=== PATIENT | female | born 1965 | race Caucasian/White ===

== ENCOUNTER → 2016-11-13 | Outpatient (CLI) | payer BC ==
[~2016-11-13] MED LIST: ASPEC325 PO; CLOB-65 EXT; HYDR25TA4 PO; LEVO75TA36 PO; POTA20TA16 PO; [UNRECOGNIZED DRUG - REMARK] TOP
[2016-11-13 09:39] LABS: BASO % 0.8 %; BASO ABS # 0.03 K/uL (0-0.2); COMPLETE YES; EOS % 3.3 %; HEMATOCRIT 37.9 % (37-47); LYMPH % 44.3 %; MEAN CELL VOLUME 96.2 fL (80-100); MEAN CORPUSCULAR HGB CONC 33.2 g/dl (32-36); MEAN PLATELET VOLUME 11.7 fL (7.4-10.4); MONO % 14.4 %; NEUT % 37.2 %; PLATELET COUNT 237 K/uL (130-400); RED BLOOD COUNT 3.94 M/uL (4.2-5.4); WHITE BLOOD COUNT 3.61 K/uL (4.8-10.8)
[2016-11-13 09:53] LABS: BLOOD UREA NITROGEN 13 mg/dl (7-18); BUN/CREATININE RATIO 14.5 (10-20); CARBON DIOXIDE 26 mmol/L (21-32); CHLORIDE 107 mmol/L (98-107); CHOLESTEROL 170 mg/dl (0-200); CREATININE 0.86 mg/dl (0.60-1.20); GLUCOSE 81 mg/dl (70-99); POTASSIUM 4.2 mmol/L (3.5-5.1); SODIUM 140 mmol/L (136-145); TRIGLYCERIDES 69 mg/dl (0-150); VERY LOW DENSITY LIPOPROT CALC 14 mg/dl
[2016-11-13 10:03] LABS: CHOLESTEROL/HDL RATIO 2.7; HDL CHOLESTEROL 64 mg/dl; LDL CHOLESTEROL CALCULATED 92 mg/dl
== END | disposition home or self-care (01) ==
LOC: C.LAB 07:54
DX: I10 Essential (primary) hypertension (principal); E03.9 Hypothyroidism, unspecified; D64.9 Anemia, unspecified; M79.669 Pain in unspecified lower leg; Z13.89 Encounter for screening for other disorder

== ENCOUNTER → 2017-05-16 | Outpatient (CLI) | payer BC ==
[2017-05-16 10:07] LABS: BASO % 0.7 %; BASO ABS # 0.03 K/uL (0-0.2); COMPLETE YES; EOS % 3.6 %; HEMATOCRIT 36.8 % (37-47); IG% 0.2 %; LYMPH % 31.7 %; LYMPH ABS # 1.32 K/uL (1.2-3.4); MEAN CELL VOLUME 99.7 fL (80-100); MEAN CORPUSCULAR HEMOGLOBIN 32.5 pg (25-34); MEAN CORPUSCULAR HGB CONC 32.6 g/dl (32-36); MEAN PLATELET VOLUME 11.7 fL (7.4-10.4); MONO % 10.8 %; PLATELET COUNT 224 K/uL (130-400); RED BLOOD COUNT 3.69 M/uL (4.2-5.4); WHITE BLOOD COUNT 4.16 K/uL (4.8-10.8)
[2017-05-16 10:16] LABS: BLOOD UREA NITROGEN 14 mg/dl (7-18); BUN/CREATININE RATIO 17.4 (10-20); CALCIUM 8.6 mg/dl (8.5-10.1); CARBON DIOXIDE 27 mmol/L (21-32); CHLORIDE 105 mmol/L (98-107); GLUCOSE 82 mg/dl (70-99); POTASSIUM 3.6 mmol/L (3.5-5.1); SODIUM 137 mmol/L (136-145)
== END | disposition home or self-care (01) ==
LOC: C.LAB 07:44
DX: I10 Essential (primary) hypertension (principal); E03.9 Hypothyroidism, unspecified

== ENCOUNTER → 2017-07-10 | Outpatient (CLI) | payer OTHER ==
--- NOTE | 2017-07-10 13:27 | DIAGNOSTIC IMAGING REPORT ---
ULTRASOUND OF THE THYROID GLAND CLINICAL HISTORY: Multinodular goiter. COMPARISON STUDY: Thyroid ultrasound dated 09/16/2013. TECHNIQUE: Real-time, grayscale, and color flow sonography of the thyroid gland is performed utilizing a high-frequency linear transducer. Images are reviewed in the transverse and longitudinal planes. FINDINGS: Right lobe: The right lobe of the thyroid gland is mildly enlarged and heterogeneous in echotexture, measuring 5.7 x 2.6 x 2.8 cm. A lobulated solid and cystic nodule in the mid to lower pole measures 3.3 x 2.2 x 2.3 cm (this is not significantly changed but was previously measured as 2 discrete nodules). Internal flow is seen on color imaging. A cystic nodule with minimal complexity in the upper pole measures 1.2 x 0.7 x 1.0 cm. This nodule is increasingly cystic from 2014. Left lobe: The left lobe of the thyroid gland is normal in size and heterogeneous in echotexture, measuring 4.7 x 1.7 x 1.7 cm. A solid and cystic nodule in the mid to lower pole measures 3.0 x 1.6 x 1.4 cm (not significantly changed but previously measured as 3 discrete nodules). Internal flow is seen on color imaging. A coarse calcification is noted in the lower pole. Isthmus: The thyroid isthmus is normal in appearance and measures 0.2 cm in AP diameter. IMPRESSION: Multinodular thyroid gland, not significantly changed in appearance from previous. See above. Electronically signed by: Pedro Kelly M.D. 07/10/2017 1:25 PM Dictated Date/Time: 07/10/2017 1:21 PM
== END | disposition home or self-care (01) ==
LOC: C.ULTR 12:40
DX: E04.2 Nontoxic multinodular goiter (principal)